=== PATIENT | male | born 1980 | race Caucasian/White ===

== ENCOUNTER 2017-04-13 00:06 | Emergency (ER) | payer OTHER ==
--- NOTE | 2017-04-13 00:16 | EDM.PDOC ---
ED HPI GENERAL MEDICAL PROBLEM - General Chief Complaint: Syncope Stated Complaint: [facility] Time Seen by Provider: 04/13/17 00:16 Source of Information: Reports: Patient History Limitations: Reports: No Limitations - History of Present Illness INITIAL COMMENTS - FREE TEXT/NARRATIVE: 36-year-old male was working near [facility] on a [employer] site. Presents to the ED after suffering a syncopal episode while in the shack. She states she's felt ill for the last 48 hours with paroxysmal cough bodyaches headache and decreased appetite compatible with influenza. He states that the cold air outside takes his breath away and causes him to cough worse. He was inside sitting on the bench in from the warmer for the last couple of hours. He states that he has been coughing terribly. Apparently he was coughing prior to him passing out and falling off of the bench onto his right shoulder.. He did not hit his head. Apparently was unresponsive for short period of time and then aided by coworkers. Ambulance was summoned and I should've a met the ambulance in a work truck driven by his coworkers. Patient appreciates his appetite has been very poor the last few days with very little solid intake try to take extra fluids. He is nasally congested. States cough is dry and hacking. Headache and body aches are persistent although he thought his fever broke yesterday but came back again tonight. Patient flew in from [place] where he resides last Friday. Onset: Sudden Onset Date: 04/12/17 Onset Time: 23:25 Duration: Minutes: Location: Reports: Generalized (Brought to the ED for evaluation of a syncopal episode that occurred in the workplace.) Quality: Reports: Other Severity: Moderate (Patient has some discomfort in his right shoulder where he fell off of the bench but denies any head pain.) Improves with: Reports: None Worsens with: Reports: None Context: Reports: Other (Patient is quite ill the last 48 hours with generalized myalgia headache and paroxysmal cough and very poor appetite compatible with influenza illness.). Denies: Activity, Exercise, Lifting, Sick Contact, Trauma Associated Symptoms: Reports: Chest Pain (Severe paroxysmal dry cough.), Cough, Fever/Chills, Headaches, Loss of Appetite, Malaise, Nausea/Vomiting, Weakness ( Coughing until he vomits occasionally. Otherwise severe weakness). Denies: No Other Symptoms ( Coughing so much.), Confusion, Diaphoresis, Rash, Seizure, Shortness of Breath, Syncope Treatments [employer]: Reports: NSAIDS (Motrin when necessary.) Chest Pain Score (Numeric/FACES): 7 - Related Data Allergies Allergy/AdvReac Type Severity Reaction Status Date / Time No Known Allergies Allergy Verified 04/13/17 00:14 Home Meds: Home Meds Chlorpheniramine/HYDROcodone [Tussionex Pennkinetic] 5 ml PO Q12H PRN #60 ml [Rx] Lisinopril 40 mg PO DAILY 04/13/17 [History] Oseltamivir [Tamiflu] 75 mg PO BID #9 cap 04/13/17 [Rx] Pantoprazole Sodium [Protonix] 40 mg PO DAILY 04/13/17 [History] Past Medical History Cardiovascular History: Reports: Hypertension Gastrointestinal History: Reports: GERD Social & Family History - Living Situation & Occupation Living situation: Reports: Occupation: Employed (Lives in [place].) ED ROS GENERAL - Review of Systems Review Of Systems: See Below Constitutional: Reports: Fever, Chills, Malaise, Weakness, Fatigue, Night Sweats , Diaphoresis, Decreased Appetite, Weight Loss HEENT: Reports: Eye Pain (Discussion with lateral gaze.), Sinus Problem (Some sinus congestion) Respiratory: Reports: Shortness of Breath, Cough, Other (Cough is associated emesis.). Denies: Wheezing, Pleuritic Chest Pain (Severe paroxysmal nonproductive cough.), Sputum, Hemoptysis Cardiovascular: Reports: Chest Pain (From coughing), Blood Pressure Problem, Dyspnea on Exertion, Lightheadedness (Members getting lightheaded dizzy prior to passing out but he doesn't remember what happened after this.). Denies: Claudication, Orthopnea (On blood pressure medication.), Palpitations Endocrine: Reports: Fatigue GI/Abdominal: Reports: Decreased Appetite (Severe decrease in appetite.), Nausea , Vomiting. Denies: Abdominal Pain : Reports: No Symptoms (Posttussive vomiting on a couple of occasions.) Musculoskeletal: Reports: No Symptoms Skin: Reports: No Symptoms Neurological: Reports: Headache Psychiatric: Reports: No Symptoms Hematologic/Lymphatic: Reports: No Symptoms Immunologic: Reports: No Symptoms - Physical Exam Exam: See Below Exam Limited By: No Limitations General Appearance: Alert, WD/WN, Moderate Distress (He appears ill. He is afebrile at this time.) Eye Exam: Bilateral Eye: Normal Fundi, Normal Inspection Ears: Normal TMs Nose: Other (Nose is swollen with turbinate swelling bilaterally.) Throat/Mouth: Normal Oropharynx, Other (Tongue is quite dry and heavily coated. The posterior oropharynx is normal.) Head Exam: Atraumatic, Normocephalic, Other (No signs of head trauma from his syncopal event.) Neck: Normal Inspection, Supple, Non-Tender, Full Range of Motion. No: Lymphadenopathy (L), Lymphadenopathy (R) Respiratory/Chest: Lungs Clear, Normal Breath Sounds (Tachypnea can examination 22-24 breaths per minute.), No Accessory Muscle Use, Chest Non-Tender, Respiratory Distress. No: Rales, Rhonchi, Wheezing Cardiovascular: Normal Peripheral Pulses, Regular Rate, Rhythm, No Edema, No Gallop, No Murmur, No Rub GI/Abdominal: Normal Bowel Sounds, Soft, Non-Tender, No Organomegaly Neuro Exam (Abbreviated): Alert, Oriented, CN II-XII Intact, Normal Cognition, No Motor/Sensory Deficits. No: Normal Gait Back Exam: Normal Inspection, Full Range of Motion Extremities: Other Psychiatric: Normal Affect (Some pain in the deltoid musculature of his right shoulder but no obvious deformities and he has full range of motion of the joint.) Skin Exam: Warm, Dry, Intact, Normal Color, No Rash EKG INTERPRETATION EKG Date: 04/13/17 Time: 00:35 Rhythm: NSR Rate (Beats/Min): 81 [place]: Normal P-Wave: Present QRS: Normal ST-T: Normal QT: Normal EKG Interpretation Comments: Normal ECG Course - Vital Signs Last Recorded V/S: Last Vital Signs Temp 36.7 C 04/13/17 00:10 Pulse 86 04/13/17 00:10 Resp 22 H 04/13/17 00:10 BP 135/84 04/13/17 00:10 Pulse Ox 100 04/13/17 00:10 - Orders/Labs/Meds Orders: Active Orders 24 hr Category Date Time Status EKG Documentation Completion [RC] STAT Care 04/13/17 00:29 Active Chest 1V Frontal [CR] Stat Exams 04/13/17 00:29 Taken Dextrose 5%-0.9% NaCl [Dextrose 5%-Normal Saline] 1,000 Med 04/13/17 00:30 Active ml IV ASDIRECTED Ketorolac [Toradol] Med 04/13/17 00:30 Active 30 mg IVPUSH ONETIME Medication Orders Dextrose/Sodium Chloride (Dextrose 5%-Normal Saline) 1,000 mls @ 999 mls/hr IV ASDIRECTED ALLYSON Last Admin: 04/13/17 00:51 Dose: 999 mls/hr Ketorolac Tromethamine (Toradol) 30 mg IVPUSH ONETIME ALL[facility]ON Last Admin: 04/13/17 00:52 Dose: 30 mg Labs: Laboratory Tests 04/13/17 04/13/17 Range/Units 00:45 00:45 WBC 6.11 (4.23-9.07) K/mm3 RBC 4.86 (4.63-6.08) M/mm3 Hgb 14.8 (13.7-17.5) gm/L Hct 42.8 (40.1-51.0) % MCV 88.1 (79.0-92.2) fl MCH 30.5 (25.7-32.2) pg MCHC 34.6 (32.2-35.5) g/dl RDW Std Deviation 41.9 (35.1-43.9) fL Plt Count 168 (163-337) K/mm3 MPV 8.7 L (9.4-12.3) fl Neutrophils % (Manual) 72 H (40-60) % Band Neutrophils % 1 (0-10) % Lymphocytes % (Manual) 18 L (20-40) % Atypical Lymphs % 0 % Monocytes % (Manual) 8 (2-10) % Eosinophils % (Manual) 0 L (0.8-7.0) % Basophils % (Manual) 1 (0.2-1.2) Toxic Granulation See note Platelet Estimate Adequate Plt Morphology Comment Normal RBC Morph Comment Normal Sodium 139 (136-145) mEq/L Potassium 4.1 (3.5-5.1) mEq/L Chloride 102 (98-107) mEq/L Carbon Dioxide 24 (21-32) mEq/L Anion Gap 17.1 H (5-15) BUN 5 L (7-18) mg/dL Creatinine 1.0 (0.7-1.3) mg/dL Est Cr Clr Drug Dosing 96.40 mL/min Estimated GFR (MDRD) > 60 (>60) mL/min BUN/Creatinine Ratio 5.0 L (14-18) Glucose 108 H (74-106) mg/dL Calcium 8.5 (8.5-10.1) mg/dL Total Bilirubin 0.4 (0.2-1.0) mg/dL AST 35 (15-37) U/L ALT 55 (16-63) U/L Alkaline Phosphatase 70 (46-116) U/L CK-MB (CK-2) 0.5 (0-3.6) ng/ml Troponin I < 0.017 (0.00-0.056) ng/mL C-Reactive Protein 1.5 H* (<1.0) mg/dL Total Protein 7.4 (6.4-8.2) g/dl Albumin 4.1 (3.4-5.0) g/dl Globulin 3.3 gm/dL Albumin/Globulin Ratio 1.2 (1-2) Meds: Medications Generic Name Dose Route Start Last Admin Trade Name Freq PRN Reason Stop Dose Admin Dextrose/Sodium Chloride 1,000 mls @ 999 mls/hr 04/13/17 00:30 04/13/17 00:51 Dextrose 5%-Normal Saline IV 999 mls/hr ASDIRECTED ALLYSON Administration Ketorolac Tromethamine 30 mg 04/13/17 00:30 04/13/17 00:52 Toradol IVPUSH 30 mg ONETIME [facility] Administration Discontinued Medications Generic Name Dose Route Start Last Admin Trade Name Freq PRN Reason Stop Dose Admin Oseltamivir Phosphate 75 mg 04/13/17 01:13 04/13/17 01:24 Tamiflu PO 04/13/17 01:14 75 mg ONETIME ONE Administration Promethazine HCl/Codeine 15 ml 04/13/17 01:17 04/13/17 01:25 Phenergan With Codeine PO 04/13/17 01:18 15 ml ONETIME ONE Administration - Radiology Interpretation Free Text/Narrative:: 36-year-old male brought to the ED by [facility] after 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 Patient has not felt well for the last 48 hours with high fever chills headache paroxysmal dry cough and anorexia. He has tried eat but has to force himself to do so.. This evening he was in front of a seizure in the [employer] where they are employed. He states apparently suddenly he was coughing and possibly collapsed onto the floor. His coworkers said that he passed out for a short period of time. He injured his right shoulder when he fell and hit the floor. Denies hitting his head or any worsening of headache at this time. Patient clinically looks ill. He is afebrile he appears to be volume depleted. Paramedics gave him 500mls of normal saline enroute to hospital. He will now receive D5 normal saline at open. Routine labs will be obtained and influenza screen ordered one view chest x-ray to be done. - Re-Assessments/Exams Free Text/Narrative Re-Assessment/Exam: 04/13/17 01:12 chest x-ray is essentially normal. Lab called over and stated that he has influenza B positive. Initial white count is 6.11. Differential pending. 04/13/17 01:18 patient advised of the finding of the positive influenza B test. He will get be given a dose of Tamiflu 75 mg by mouth and due to severe paroxysmal cough will give him Phenergan with codeine 15 mils by mouth as well. 04/13/17 01:40 Total white count is 6.11 with a 72% neutrophils 1% band cells reported. Hemoglobin is good at 14.8 with hematocrit of 42.8. Platelet count is 168,000. Sodium is 139 potassium is 4.1. Chloride 102 bicarbonate is 24. And a gap is mildly elevated at 17.1 indicating mild volume depletion. B1 was 5. Creatinine is 1.0. GFR is greater than 60. Glucose is 108. Calcium 8.5 the liver function normal cardiac markers normal C-reactive protein is 1.5. Influenza B+ patient will require Tamiflu 75 mg twice a day to complete a 5 day course of therapy. Initial dose of atenolol was provided in the ED tonight as it 's middle of night with no pharmacies open. Also prescribed Tussionex cough syrup 5 mils every 12 hours as needed for cough relief. Continue Motrin 600 mg every 6 hours as needed for fever , body ache and headache relief. Sick all pole event occurred tonight primarily due to volume depletion and cough related syncope. Departure - Departure Time of Disposition: 06:32 Disposition: Home, Self-Care 01 Condition: Fair Clinical Impression: Influenza B - Discharge Information Prescriptions: Chlorpheniramine/HYDROcodone [Tussionex Pennkinetic] 5 ml PO Q12H PRN #60 ml PRN Reason: Cough relief Oseltamivir [Tamiflu] 75 mg PO BID #9 cap Instructions: Influenza, Adult Referrals: PCP,None [Primary Care Provider] - Forms: ED Department Discharge Additional Instructions: Evaluation the emergency room tonight in regards to syncopal event that occurred in the workplace tonight. By history you have been ill for the last 48 hours with generalized body ache fever chills and paroxysmal cough. These symptoms are compatible with influenza which was confirmed on testing to be influenza type B. This is slightly atypical as most of our influenza in [place] has been influenza A the last 6 weeks. However the treatment is the same and they act the same in terms that with the some time to get more diarrhea or GI upset. Treatment is Tamiflu 75 mg twice daily for the next 5 days. First dose of Tamiflu was provided in the ED next dose would be due close to supper time or 4:00 this afternoon. May use cough syrup Tussionex 5 mils every 12 hours as needed for cough relief. Need to continue Motrin 600 mg every 6 hours for fever headache and body ache relief. Plenty of fluids such as Gatorade or Powerade to maintain hydration as appetite is very poor with this illness. After you have taken the first 3 tablets of Tamiflu, your appetite, body aches and headache symptoms will start to dissipate. You are considered contagious to others for up to 7 days from the time you became ill through droplet spread by coughing. . - My Orders Last 24 Hours: My Active Orders 04/13/17 00:29 EKG Documentation Completion [RC] STAT Chest 1V Frontal [CR] Stat 04/13/17 00:30 Dextrose 5%-0.9% NaCl [Dextrose 5%-Normal Saline] 1,000 ml IV ASDIRECTED Ketorolac [Toradol] 30 mg IVPUSH ONETIME - Assessment/Plan Last 24 Hours: My Active Orders 04/13/17 00:29 EKG Documentation Completion [RC] STAT Chest 1V Frontal [CR] Stat 04/13/17 00:30 Dextrose 5%-0.9% NaCl [Dextrose 5%-Normal Saline] 1,000 ml IV ASDIRECTED Ketorolac [Toradol] 30 mg IVPUSH ONETIME
[2017-04-13] MEDS ORDERED: Dextrose 5%-0.9% NaCl 1,000 ML IV SCH (00:30)
[2017-04-13] MEDS ORDERED: Ketorolac 30 MG/ML SDV IVPUSH SCH (00:30)
[2017-04-13] MEDS ORDERED: Oseltamivir 75 MG Cap PO ONE (01:13)
[2017-04-13] MEDS ORDERED: Codeine/Promethazine 10-6.25 MG/5 ML Syrup 5 ML UD Cup PO ONE (01:17)
--- NOTE | 2017-04-13 16:54 | CR ---
Chest: Portable view of the chest was obtained. Comparison: Prior chest x-ray is not available. Heart size and mediastinum are within normal limits for portable technique. Lungs are clear. Bony structures are grossly intact. Impression: 1. Nothing acute is identified on portable chest x-ray. Diagnostic code #1
== END 2017-04-13 07:10 | disposition home or self-care (01) ==
LOC: JD.ED 00:06
DX: J10.1 Influenza due to other identified influenza virus with other respiratory manifestations (principal); I10 Essential (primary) hypertension; K21.9 Gastro-esophageal reflux disease without esophagitis; Z79.899 Other long term (current) drug therapy
CPT/HCPCS: 36415; 71045; 80053; 82553; 84484; 85025; 86140; 87804; 93005; 96361; 96374; 99285; A9270; J1885; J7042; 99284